=== PATIENT | male | born 1970 | race Hispanic/Latino ===

== ENCOUNTER 2017-12-12 08:29 | Day surgery (SDC) | payer BC ==
[2017-12-05 08:28] VITALS: BMI 38.2
[2017-12-12] MEDS ORDERED: Propofol 10 mg/ml Inj (20 ML) ONE ×2 (09:37→10:10)
[2017-12-12] MEDS ORDERED: Sodium Chloride 0.9% 1,000 ML IV SCH (10:30)
[2017-12-12 10:34] VITALS: RESP 16
[2017-12-12 12:00] VITALS: BP 134/64; PULSE 85; TEMP 98.1; O2SAT 97
== END 2017-12-12 11:53 | disposition home or self-care (01) ==
LOC: ENDO 08:29
PROVIDERS: ATTEND Internal Medicine Gastroenterology
DX: K62.5 Hemorrhage of anus and rectum (principal); K64.4 Residual hemorrhoidal skin tags; K64.8 Other hemorrhoids; K63.89 Other specified diseases of intestine; K21.0 Gastro-esophageal reflux disease with esophagitis; K29.50 Unspecified chronic gastritis without bleeding; B96.81 Helicobacter pylori [H. pylori] as the cause of diseases classified elsewhere
CPT/HCPCS: 43239; 45378; 88305; 88312; 88342; J2001; J2704; J3010; J7030; J7040